=== PATIENT | female | born 1950 | race Caucasian/White ===

== ENCOUNTER → 2016-11-06 | Outpatient (CLI) | payer OTHER ==
[~2016-11-06] MED LIST: ALBU1AER9 INH; ASPI81TA28 PO; CARV6.252 PO; DLN100 PO; DLN30 PO; ERGO1CAP35 PO; IPRASOL4 INH; MULT-506
[2016-11-06 17:28] LABS: MEAN CELL VOLUME 97.7 fL (80-100); MEAN CORPUSCULAR HEMOGLOBIN 31.9 pg (25-34); MEAN CORPUSCULAR HGB CONC 32.6 g/dl (32-36); MEAN PLATELET VOLUME 9.3 fL (7.4-10.4); PLATELET COUNT 228 K/uL (130-400); RED BLOOD COUNT 3.89 M/uL (4.2-5.4); WHITE BLOOD COUNT 7.44 K/uL (4.8-10.8)
[2016-11-06 17:33] LABS: URINE APPEARANCE CLEAR (CLEAR); URINE BILIRUBIN NEG (NEG); URINE COLOR YELLOW; URINE NITRITE NEG (NEG); URINE PH 7.5 (4.5-7.5); URINE SPECIFIC GRAVITY 1.006 (1.000-1.030); UROBILINOGEN NEG (NEG); ZZUR CULT IF INDIC CLEAN CATCH NO
[2016-11-06 17:37] LABS: MANUAL MICROSCOPIC REQUIRED? NO; REVIEW REQ? NO
[2016-11-06 17:46] LABS: CREATININE, URINE < 13.0 mg/dl; URINE TOTAL PROTEIN 5.3 mg/dl (0-11.9)
[2016-11-06 17:54] LABS: ALB/GLOB RATIO 0.8 (0.9-2); ALT/SGPT 20 U/L (12-78); AST/SGOT 15 U/L (15-37); BLOOD UREA NITROGEN 21 mg/dl (7-18); BUN/CREATININE RATIO 24.8 (10-20); CALCIUM 8.6 mg/dl (8.5-10.1); CARBON DIOXIDE 33 mmol/L (21-32); CHLORIDE 106 mmol/L (98-107); CREATININE 0.83 mg/dl (0.60-1.20); GLUCOSE 92 mg/dl (70-99); POTASSIUM 4.1 mmol/L (3.5-5.1); SODIUM 142 mmol/L (136-145)
[2016-11-06 17:55] LABS: ALKALINE PHOSPHATASE 154 U/L (45-117)
== END | disposition home or self-care (01) ==
LOC: C.LAB1850 16:59
PROVIDERS: ATTEND Internal Medicine Nephrology
DX: N25.81 Secondary hyperparathyroidism of renal origin (principal); D86.9 Sarcoidosis, unspecified; N20.0 Calculus of kidney; N18.2 Chronic kidney disease, stage 2 (mild); I12.9 Hypertensive chronic kidney disease with stage 1 through stage 4 chronic kidney disease, or unspecified chronic kidney disease; E55.9 Vitamin D deficiency, unspecified

== ENCOUNTER → 2016-12-11 | Outpatient (CLI) | payer OTHER ==
--- NOTE | 2016-12-14 13:13 | MAMMOGRAPHY REPORT ---
BILATERAL DIGITAL SCREENING MAMMOGRAM TOMOSYNTHESIS WITH CAD: 12/11/2016 TECHNIQUE: Breast tomosynthesis in addition to standard 2D mammography was performed. Current study was also evaluated with a Computer Aided Detection (CAD) system. COMPARISON: Comparison is made to exams dated: 08/08/2015 mammogram, 08/02/2014 mammogram, 07/13/2013 yazmin mogram, 07/04/2012 mammogram, and 07/03/2011 mammogram - [facility]. BREAST COMPOSITION: There are scattered areas of fibroglandular density in both breasts. FINDINGS: No suspicious masses, calcifications, or areas of architectural distortion are noted in ei ther breast. There has been no significant interval change compared to prior exams. IMPRESSION: ACR BI-RADS CATEGORY 1: NEGATIVE There is no mammographic evidence of malignancy. A 1 year screening mammogram is recommended. The pa tient will receive written notification of the results. Approximately 10% of breast cancers are not detected with mammography. A negative mammographic report should not delay biopsy if a clinically suggestive mass is present. Lima Escobar M.D. ah/:12/11/2016 16:31:07 Loss Prevention Supervisor: Radha Fox RT(R)(M), [facility] letter sent: Normal 1/2 BI-RADS Code: ACR BI-RADS Category 1: Negative
== END | disposition home or self-care (01) ==
LOC: C.MAMM 12:27
PROVIDERS: ATTEND Family Medicine
DX: Z12.31 Encounter for screening mammogram for malignant neoplasm of breast (principal)

== ENCOUNTER → 2017-05-18 | Outpatient (CLI) | payer OTHER ==
[2017-05-18 17:46] LABS: HEMATOCRIT 37.9 % (37-47); MEAN CELL VOLUME 99.5 fL (80-100); MEAN CORPUSCULAR HEMOGLOBIN 32.8 pg (25-34); MEAN PLATELET VOLUME 9.6 fL (7.4-10.4); PLATELET COUNT 226 K/uL (130-400); RED BLOOD COUNT 3.81 M/uL (4.2-5.4); WHITE BLOOD COUNT 7.25 K/uL (4.8-10.8)
[2017-05-18 18:03] LABS: URINE APPEARANCE CLEAR (CLEAR); URINE BILIRUBIN NEG (NEG); URINE COLOR YELLOW; URINE EPITHELIAL CELL AUTO >30 /lpf (0-5); URINE NITRITE NEG (NEG); URINE SPECIFIC GRAVITY 1.022 (1.000-1.030); UROBILINOGEN NEG (NEG)
[2017-05-18 18:13] LABS: CREATININE, URINE 79.6 mg/dl; URINE PROTIEN/CREAT RATIO 0.3 (0-0.2); URINE TOTAL PROTEIN 24.5 mg/dl (0-11.9)
[2017-05-18 18:14] LABS: MANUAL MICROSCOPIC REQUIRED? NO; REVIEW REQ? NO
[2017-05-18 18:24] LABS: BLOOD UREA NITROGEN 23 mg/dl (7-18); BUN/CREATININE RATIO 32.2 (10-20); CALCIUM 8.2 mg/dl (8.5-10.1); CARBON DIOXIDE 31 mmol/L (21-32); CHLORIDE 104 mmol/L (98-107); CREATININE 0.73 mg/dl (0.60-1.20); GLUCOSE 87 mg/dl (70-99); POTASSIUM 3.8 mmol/L (3.5-5.1); SODIUM 140 mmol/L (136-145)
[2017-05-18 18:27] LABS: PHOSPHORUS 3.1 mg/dl (2.5-4.9)
== END | disposition home or self-care (01) ==
LOC: C.LAB1850 16:56
PROVIDERS: ATTEND Internal Medicine Nephrology
DX: N25.81 Secondary hyperparathyroidism of renal origin (principal); N18.9 Chronic kidney disease, unspecified; N20.0 Calculus of kidney; D86.9 Sarcoidosis, unspecified; I10 Essential (primary) hypertension; E55.9 Vitamin D deficiency, unspecified; N18.2 Chronic kidney disease, stage 2 (mild)

== ENCOUNTER 2017-07-17 20:38 | Emergency (ER) | payer OTHER ==
[~2017-07-17] VITALS: Ht 162.6 cm; Wt 95.4 kg
[2017-07-17 20:48] VITALS: TEMP 36.9; Ht 162.6 cm; Wt 95.4 kg
--- NOTE | 2017-07-17 21:04 | EMERGENCY ROOM VISIT NOTE ---
History Report prepared by Corky: Kita Marin Under the Supervision of: Dr. Uri Oliver D.O. First contact with patient: 20:53 Chief Complaint: FALL Stated Complaint: FALL, HEAD & KNEE INJURY History of Present Illness The patient is a 67 year old female who presents to the Emergency Room with complaints of a fall that occurred prior to arrival. She reports she slipped on ice in her garage, hitting her head and right knee. She rates her discomfort as a 5/10 in severity. She denies any loss of consciousness. She states she was unable to get up on her own initially, but after a moment was able to crawl to a wheelchair her family keeps in her garage and call for help. She does not take daily blood thinners. 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 A total of 10 systems reviewed and were otherwise negative. Past Medical & Surgical Medical Problems: (1) Fibrocystic breast disease (2) Seizure disorder (3) Sjogren's disease Surgical Problems: (1) H/O eye surgery (2) S/P cholecystectomy (3) S/P tonsillectomy Social History Smoking Status: Former Smoker Alcohol Use: none Drug Use: none Marital Status: single Housing Status: lives with family Occupation Status: retired Current/Historical Medications Scheduled Aspirin (Aspirin Ec), 81 MG PO DAILY Carvedilol (Coreg), 6.25 MG PO BID Ergocalciferol (Drisdol), 50,000 UNITS PO MONTHLY Multivitamin (Multivitamin), 1 TAB PO DAILY Phenytoin Sodium (Dilantin), 100 MG PO BID Phenytoin Sodium (Dilantin), 200 MG PO QPM Phenytoin Sodium Extended (Dilantin), 30 MG PO QPM Scheduled PRN Albuterol Sulfate (Proair Respiclick), 2 PUFFS INH UD PRN for CHEST CONGESTION Ipratropium-Albuterol (Duoneb), 1 TREATMENT INH Q4H PRN for SOB/Wheezing Allergies Coded Allergies: Carbamazepine (Verified Allergy, Unknown, 07/17/17) Cephalexin (Verified Allergy, Unknown, unk, 07/17/17) Pseudoephedrine (Verified Allergy, Unknown, 07/17/17) Simvastatin (Verified Allergy, Unknown, 07/17/17) Physical Exam Vital Signs Date Time Temp Pulse Resp B/P (MAP) Pulse Ox O2 Delivery O2 Flow Rate FiO2 07/17/17 22:16 76 18 193/79 98 Room Air 07/17/17 20:48 36.9 84 18 200/90 92 Room Air Physical Exam GENERAL: Patient is awake, alert, and in no acute distress. Patient is resting comfortably and showing no signs of anxiety EYES: The conjunctivae are clear. The pupils are round and reactive. EARS, NOSE, MOUTH AND THROAT: The nose is without any evidence of any deformity. Mucous membranes are moist tongue is midline NECK: The neck is nontender and supple. RESPIRATORY: Normal respiratory effort is noted there is no evidence of wheezing rhonchi or rales CARDIOVASCULAR: Regular rate and rhythm noted there no murmurs rubs or gallops normal S1 normal S2 GASTROINTESTINAL: The abdomen is soft. Bowel sounds are present in all quadrants. Abdomen is nontender BACK: No midline tenderness or or step-off noted range of motion in flexion extension as well as rotation no signs of muscle spasm noted MUSCULOSKELETAL/EXTREMITIES: Normal ROM noted in both hips, no deformity in the lower extremities. There was ecchymosis, swelling and tenderness over the right patella. Patient was able to hold the leg off the bed. There was no instability noted to anterior or posterior drawer testing. There is no evidence of gross deformity full range of motion is noted in the hips and shoulders SKIN: There is no obvious evidence of any rash. There are no petechiae, pallor or cyanosis noted. NEUROLOGIC: Patient is awake alert and oriented x3 Medical Decision & Procedures ER Provider Diagnostic Interpretation: Radiology results as stated below per my review and radiologist interpretation: HEAD WITHOUT CONTRAST (CT) CT DOSE: 537.48 mGy.cm HISTORY: Trauma. Mental status change. fall TECHNIQUE: Multiaxial CT images of the head were performed without the use of intravenous contrast. A dose lowering technique was utilized adhering to the principles of ALARA. Comparison: None. Findings: The paranasal sinuses and mastoid air cells are clear. The calvarium and skull base are intact. The ventricles and sulci are within normal limits. There is no mass, hematoma, midline shift, or acute infarct. Impression: No acute intracranial abnormality. The above report was generated using voice recognition software. It may contain grammatical, syntax or spelling errors. Electronically signed by: Hair Muniz M.D. 07/17/2017 9:19 PM R KNEE 1 OR 2 VIEWS ROUTINE CLINICAL HISTORY: fall trauma. Pain. COMPARISON: None. DISCUSSION: The bones and joint spaces appear intact. There is no evidence of fracture, dislocation or bony disease. There is no evidence for soft tissue swelling. IMPRESSION: Negative study. The above report was generated using voice recognition software. It may contain grammatical, syntax or spelling errors. Electronically signed by: Hair Muniz M.D. 07/17/2017 9:49 PM Medications Administered Medications (Trade) Dose Ordered Sig/Eric Route Start Time Stop Time Status Last Admin Dose Admin Acetaminophen (Tylenol Tab) 1,000 mg NOW STAT PO 07/17/17 21:59 07/17/17 22:00 DC 07/17/17 22:12 1,000 MG ED Course 2057: The patient was evaluated in room B12. A complete history and physical examination were performed. 2158: Acetaminophen 1000 mg PO. 2214: I reevaluated the patient. She is feeling well and resting comfortably. I discussed her results and discharge instructions and she verbalized complete understanding and agreement. Medical Decision Prior records/ancillary studies reviewed. Triage Nursing notes reviewed. The patient's history was concerning for traumatic injury Differential diagnosis: Etiologies such as fracture, dislocation, intra-abdominal, pneumothorax, intrathoracic , intracranial, neurologic, as well as other traumatic pathologies were entertained. The patient is a 67-year-old female who presented to the emergency department after a fall. She fell striking the back of her head. She also had an injury to her right knee. She had significant swelling and ecchymosis over the right patella. X-rays did not reveal any acute intercranial pathology or fracture to the right knee. I discussed the patient's radiographic studies with her. She was treated with medication for pain. She was encouraged to rest and avoid any strenuous activity. She was also encouraged to call her primary care physician to schedule a follow-up appointment. Otherwise she was encouraged to return to the emergency department immediately if symptoms change worsen or the need arises. Head Trauma GCS Score: 15 Medication Reconcilliation Current Medication List: was personally reviewed by me Blood Pressure Screening Patient's blood pressure: Elevated blood pressure Blood pressure disposition: Referred to PCP Impression Primary Impression: Fall Additional Impressions: Head injury Contusion of right knee Scribe Attestation The scribe's documentation has been prepared under my direction and personally reviewed by me in its entirety. I confirm that the note above accurately reflects all work, treatment, procedures, and medical decision making performed by me. Departure Information Dispostion Home / Self-Care Referrals Tay Rey III, M.D. (PCP) Patient Instructions ED Contusion Lower Ext, ED Head Injury Closed, My [facility] Additional Instructions Call your family to schedule follow-up appointment. Continue using Tylenol and Motrin as directed for pain. Recommend another x-ray of the right knee if symptoms do not improve within 7-10 days. Problem Qualifiers Primary Impression: Fall Encounter type: initial encounter Qualified Codes: W19.XXXA - Unspecified fall, initial encounter Additional Impressions: Head injury Encounter type: initial encounter Qualified Codes: S09.90XA - Unspecified injury of head, initial encounter Contusion of right knee Encounter type: initial encounter Qualified Codes: S80.01XA - Contusion of right knee, initial encounter
--- NOTE | 2017-07-17 21:20 | DIAGNOSTIC IMAGING REPORT ---
HEAD WITHOUT CONTRAST (CT) CT DOSE: 537.48 mGy.cm HISTORY: Trauma. Mental status change. fall TECHNIQUE: Multiaxial CT images of the head were performed without the use of intravenous contrast. A dose lowering technique was utilized adhering to the principles of ALARA. Comparison: None. Findings: The paranasal sinuses and mastoid air cells are clear. The calvarium and skull base are intact. The ventricles and sulci are within normal limits. There is no mass, hematoma, midline shift, or acute infarct. Impression: No acute intracranial abnormality. The above report was generated using voice recognition software. It may contain grammatical, syntax or spelling errors. Electronically signed by: Hair Muniz M.D. 07/17/2017 9:19 PM Dictated Date/Time: 07/17/2017 9:18 PM
[2017-07-17] MEDS ORDERED: PHEN-310 PO (21:37)
[2017-07-17] MEDS ORDERED: IPRASOL4 INH (21:37)
[2017-07-17] MEDS ORDERED: MULT-506 PO (21:37)
[2017-07-17] MEDS ORDERED: PHN/100 PO (21:37)
[2017-07-17] MEDS ORDERED: ERGO50002 PO (21:37)
[2017-07-17] MEDS ORDERED: CARV6.252 PO (21:37)
[2017-07-17] MEDS ORDERED: DLN/100 PO (21:37)
[2017-07-17] MEDS ORDERED: ASPI81TA28 PO (21:37)
[2017-07-17] MEDS ORDERED: ALBU18002 INH (21:37)
--- NOTE | 2017-07-17 21:50 | DIAGNOSTIC IMAGING REPORT ---
R KNEE 1 OR 2 VIEWS ROUTINE CLINICAL HISTORY: fall trauma. Pain. COMPARISON: None. DISCUSSION: The bones and joint spaces appear intact. There is no evidence of fracture, dislocation or bony disease. There is no evidence for soft tissue swelling. IMPRESSION: Negative study. The above report was generated using voice recognition software. It may contain grammatical, syntax or spelling errors. Electronically signed by: Hair Muniz M.D. 07/17/2017 9:49 PM Dictated Date/Time: 07/17/2017 9:49 PM
[2017-07-17] MEDS ORDERED: ACETAMINOPHEN 500 MG TAB PO STA (21:59)
[2017-07-17 22:16] VITALS: BP 193/79; PULSE 76; O2SAT 98
== END 2017-07-17 22:44 | disposition home or self-care (01) ==
LOC: EDBD 20:38 → C.EDB 20:39
DX: S09.90XA Unspecified injury of head, initial encounter (principal); S80.01XA Contusion of right knee, initial encounter; W01.198A Fall on same level from slipping, tripping and stumbling with subsequent striking against other object, initial encounter; Y92.89 Other specified places as the place of occurrence of the external cause

== ENCOUNTER 2019-09-15 17:03 | Inpatient (IN) ==
[2019-09-15] MEDS ORDERED: ALBUT/IPRATROP 3MG/0.5MG NEB 3 ML VIAL NEB ONE (17:26)
[2019-09-15] MEDS ORDERED: DEXAMETHASONE SOD PHOSPHATE 10 MG in SYRINGE 0 ML IV STA (17:26)
[2019-09-15] MEDS ORDERED: SODIUM CHLORIDE 0.9% 500 ML IV ONE ×2 (17:26→19:35)
[2019-09-15 17:52] LABS: Basophils # (auto) 0.02 K/uL (0-0.2); Basophils % (auto) 0.5 %; Eosinophils # (auto) 0.05 K/uL (0-0.5); Eosinophils % (auto) 1.2 %; Hematocrit (blood only) 37.1 % (37-47); Hemoglobin 12.2 g/dL (12.0-16.0); Immature Granulocytes # (auto) 0.01 K/uL (0.00-0.02); Immature Granulocytes % (auto) 0.2 %; Lymphocytes % (auto) 35.5 %; Mean Corpuscular Hemoglobin 32.5 pg (25-34); Mean Corpuscular Hgb Conc 32.9 g/dL (32-36); Mean Corpuscular Volume 98.9 fL (80-100); Mean Platelet Volume 9.5 fL (7.4-10.4); Monocytes # (auto) 0.94 K/uL (0.11-0.59); Monocytes % (auto) 22.3 %; Neutrophils % (auto) 40.3 %; Platelet Count 174 K/uL (130-400); RDW Coefficient of Variation 13.6 % (11.5-14.5); RDW Standard Deviation 48.9 fL (36.4-46.3); Red Blood Count 3.75 M/uL (4.2-5.4); White Blood Count 4.22 K/uL (4.8-10.8)
[2019-09-15 18:04] LABS: INR 1.1 (0.9-1.1); Partial Thromboplastin Time 28.4 Seconds (21.0-31.0); Prothrombin Time 11.4 Seconds (9.0-12.0)
--- NOTE | 2019-09-15 18:04 | Emergency Department Note ---
History of Present Illness General Chief complaint: Flu Like Symptoms Stated complaint: FLU SX, FEVER, COUGH Time Seen by Provider: 09/15/19 17:08 Source: patient Mode of arrival: EMS Limitations: no limitations History of Present Illness Provider complaint: cough, fever Onset (ago): day(s) Location: chest Radiation: non-radiation Severity: mild Pain Consistency: + other Maximum Pain Intensity: 0 Current Pain Intensity: 0 Quality: + other (sob) Relieved By: + none Exacerbated By: + none Associated symptoms: + fever/chills and + shortness of breath; no chest pain Treatments prior to arrival: none The patient is a pleasant 69-year-old woman presents emerged department for evaluation of cough congestion fevers that have been evolving since Wednesday with a failure who was diagnosed with influenza. Home Medications Home Medications Medication Instructions Recorded Confirmed Type chlorthalidone 25 mg tablet 25 mg PO DAILY #30 tab 02/21/19 09/15/19 History lisinopril 5 mg tablet 5 mg PO DAILY tab 02/21/19 09/15/19 History multivitamin 1 tab PO DAILY 02/21/19 09/15/19 History phenytoin sodium extended 100 mg 100 mg PO BID cap 02/21/19 09/15/19 History capsule phenytoin sodium extended 30 mg 30 mg PO DAILY cap 02/21/19 09/15/19 History capsule ergocalciferol (vitamin D2) 1,250 50,000 units PO MONTHLY #12 cap 03/24/19 09/15/19 Rx mcg (50,000 unit) capsule albuterol sulfate 1.25 mg CONTINUOUS NEBULIZATION 09/15/19 09/15/19 History QID PRN albuterol sulfate 2 puff INHALATION QID PRN 09/15/19 09/15/19 History aspirin [Aspir-Low] 81 mg PO DAILY 09/15/19 09/15/19 History carvedilol [Coreg] 6.25 mg PO BID 09/15/19 09/15/19 History famotidine [Pepcid AC] 10 mg PO BID PRN 09/15/19 09/15/19 History omeprazole 20 mg PO QAM 09/15/19 09/15/19 History phenytoin sodium extended 200 mg PO HS 09/15/19 09/15/19 History pravastatin 10 mg PO DAILY 09/15/19 09/15/19 History umeclidinium-vilanterol [Anoro 1 ea INHALATION DAILY PRN 09/15/19 09/15/19 History Ellipta] Allergies Allergy/AdvReac Type Severity Reaction Status Date / Time carbamazepine Allergy Unknown Unknown Verified 09/15/19 19:17 cephalexin Allergy Unknown unk Verified 09/15/19 19:17 pseudoephedrine Allergy Unknown Unknown Verified 09/15/19 19:17 simvastatin Allergy Unknown Unknown Verified 09/15/19 19:17 Past Med/Surg History Medical History Anemia (Chronic) Chronic kidney disease, stage II (mild) (Chronic) History of nephrolithiasis (Chronic) Hypertension (Chronic) Sarcoidosis (Chronic) Secondary hyperparathyroidism (Chronic) Vitamin D deficiency (Chronic) Social History Preferred Language: Italian Communication Ability: Effective Locomotive Firer Required: No Beliefs That Will Affect Care: None Current Living Situation: Parent Other Information That Helps Us Care for You: No Feels Safe at Home: Yes Safety Concerns: Feels Safe At This Time Smoking Status: Never smoker Do You Dip or Chew Tobacco: No ; Second Hand Exposure: Yes ; Hx Alcohol Use: No Hx Substance Use: No Review of Systems See HPI for pertinent positives and negatives. A total of ten systems were reviewed and were otherwise negative. Physical Exam Vital Signs Vital Signs - 24 hr 09/15/19 17:11 09/15/19 17:42 09/15/19 17:59 Temperature 36.9 C Temperature Source Oral Pulse Rate 85 Pulse Rate [Finger] 76 Respiratory Rate 18 20 Respiratory Effort / Characteristics Non-Labored Spontaneous Respiratory Depth Normal Blood Pressure [Right Arm] Blood Pressure Mean [Right Arm] Blood Pressure Position [Right Arm] Pulse Oximetry 95 99 95 Pulse Oximetry [Resting] Oxygen Delivery Method Nasal Cannula Nasal Cannula Nasal Cannula Oxygen Flow Rate 2 3 2 Sepsis Recent Fever Within 48 Hours Yes Sepsis New/Unexplained Change in Mental Status No Sepsis Action Taken by Nursing No Action Required Oxygen Flow Rate - Titration Pulse Oximetry Post Tiitration 09/15/19 18:33 09/15/19 19:08 09/15/19 19:51 Temperature Temperature Source Pulse Rate Pulse Rate [Finger] 84 87 Respiratory Rate 22 16 Respiratory Effort / Characteristics Non-Labored Spontaneous Respiratory Depth Blood Pressure [Right Arm] 123/75 Blood Pressure Mean [Right Arm] 91 Blood Pressure Position [Right Arm] Lying Pulse Oximetry 100 87 L 96 Pulse Oximetry [Resting] Oxygen Delivery Method Aerosol Mask Room Air Nasal Cannula Nasal Cannula Oxygen Flow Rate 0 2 Sepsis Recent Fever Within 48 Hours Sepsis New/Unexplained Change in Mental Status Sepsis Action Taken by Nursing Oxygen Flow Rate - Titration 2 Pulse Oximetry Post Tiitration 92 09/15/19 20:40 09/15/19 21:03 09/15/19 21:28 Temperature Temperature Source Pulse Rate Pulse Rate [Finger] 81 71 Respiratory Rate 20 16 Respiratory Effort / Characteristics Non-Labored Spontaneous Respiratory Depth Blood Pressure [Right Arm] 134/76 Blood Pressure Mean [Right Arm] 95 Blood Pressure Position [Right Arm] Pulse Oximetry 94 97 Pulse Oximetry [Resting] 86 L Oxygen Delivery Method Room Air Nasal Cannula Oxygen Flow Rate 2 Sepsis Recent Fever Within 48 Hours Sepsis New/Unexplained Change in Mental Status Sepsis Action Taken by Nursing Oxygen Flow Rate - Titration Pulse Oximetry Post Tiitration 09/15/19 22:26 Temperature Temperature Source Pulse Rate Pulse Rate [Finger] 79 Respiratory Rate 22 Respiratory Effort / Characteristics Respiratory Depth Blood Pressure [Right Arm] 142/67 H Blood Pressure Mean [Right Arm] 92 Blood Pressure Position [Right Arm] Pulse Oximetry 96 Pulse Oximetry [Resting] Oxygen Delivery Method Nasal Cannula Oxygen Flow Rate 2 Sepsis Recent Fever Within 48 Hours Sepsis New/Unexplained Change in Mental Status Sepsis Action Taken by Nursing Oxygen Flow Rate - Titration Pulse Oximetry Post Tiitration GENERAL: Awake, alert, well-appearing, in no distress HENT: Normocephalic, atraumatic. Oropharynx with dry mucous membranes and otherwise unremarkable. EYES: Normal conjunctiva. Sclera non-icteric. NECK: Supple. No nuchal rigidity. FROM. No JVD. RESPIRATORY: Scant intermittent wheeze. CARDIAC: Regular rate, normal rhythm. Extremities warm and well perfused. Pulses equal. ABDOMEN: Soft, non-distended. No tenderness to palpation. No rebound or guarding. No masses. RECTAL: Deferred. MUSCULOSKELETAL: Chest examination reveals no tenderness. The back is symmetrical on inspection without obvious abnormality. There is no CVA tenderness to palpation. No joint edema. LOWER EXTREMITIES: Calves are equal size bilaterally and non-tender. No edema. No discoloration. NEURO: Normal sensorium. No sensory or motor deficits noted. SKIN: No rash or jaundice noted. Course Administered Medications Phenytoin Sodium (Dilantin Er) 200 mg PO HS JYOTI Stop: 10/15/19 22:44 Last Admin: 09/16/19 00:05 Dose: 200 mg Documented by: [id number] Discontinued Medications Albuterol (Duoneb) 12 ml NEB ONE ONE Stop: 09/15/19 17:27 Last Admin: 09/15/19 17:41 Dose: 12 ml Documented by: [id number] Albuterol (Duoneb) 3 ml NEB NOW STA Stop: 09/15/19 19:36 Last Admin: 09/15/19 19:51 Dose: 3 ml Documented by: [id number] Albuterol (Duoneb) 3 ml NEB NOW STA Stop: 09/15/19 21:05 Last Admin: 09/15/19 21:28 Dose: 3 ml Documented by: [id number] Guaifenesin (Mucinex) 600 mg PO NOW STA Stop: 09/15/19 21:05 Last Admin: 09/15/19 23:03 Dose: 600 mg Documented by: [id number] Sodium Chloride (Nss) 500 mls @ 999 mls/hr IV .Q31M ONE Stop: 09/15/19 17:56 Last Infusion: 09/15/19 18:43 Dose: 0 mls/hr Documented by: [id number] Admin: 09/15/19 17:59 Dose: 999 mls/hr Documented by: [id number] Dexamethasone Sodium Phosphate (10 mg/ Syringe) 2.5 mls @ 1 mls/min IV NOW STA Stop: 09/15/19 17:28 Last Admin: 09/15/19 18:33 Dose: 1 mls/min Documented by: [id number] Sodium Chloride (Nss) 500 mls @ 999 mls/hr IV .Q31M ONE Stop: 09/15/19 20:05 Last Infusion: 09/15/19 21:15 Dose: 0 mls/hr Documented by: [id number] Admin: 09/15/19 19:51 Dose: 999 mls/hr Documented by: [id number] Azithromycin 500 mg/ Dextrose 255 mls @ 127.5 mls/hr IV NOW STA Stop: 09/16/19 00:42 Last Infusion: 09/16/19 02:26 Dose: 0 mls/hr Documented by: [id number] Admin: 09/16/19 00:04 Dose: 127.5 mls/hr Documented by: [id number] Oseltamivir Phosphate (Tamiflu) 75 mg PO NOW STA; Protocol Stop: 09/15/19 19:01 Last Admin: 09/15/19 19:06 Dose: 75 mg Documented by: [id number] Potassium Chloride (Klor-Con M20) 40 meq PO NOW STA Stop: 09/15/19 19:01 Last Admin: 09/15/19 19:06 Dose: 40 meq Documented by: [id number] Medical Decision Making Differential Diagnosis Reactive airway disease, pneumonia, pneumothorax, COPD, CHF, infections, cardiac ischemia, pulmonary embolism, musculoskeletal, gastrointestinal, as well as other pathologies. Medical Records Attestation: I reviewed the patient's medical records. Home Medications Current Medication List: was personally reviewed by me Laboratory Data Attestation: I reviewed the patient's lab results. Result diagrams: 09/15/19 17:40 09/15/19 17:40 Lab Results 09/15/19 09/15/19 09/15/19 Range/Units 17:40 17:40 17:40 WBC 4.22 L (4.8-10.8) K/uL RBC 3.75 L (4.2-5.4) M/uL Hgb 12.2 (12.0-16.0) g/dL Hct 37.1 (37-47) % MCV 98.9 (80-100) fL MCH 32.5 (25-34) pg MCHC 32.9 (32-36) g/dL RDW Std Deviation 48.9 H (36.4-46.3) fL RDW Coeff of Ezequiel 13.6 (11.5-14.5) % Plt Count 174 (130-400) K/uL MPV 9.5 (7.4-10.4) fL Immature Gran % (Auto) 0.2 % Neut % (Auto) 40.3 % Lymph % (Auto) 35.5 % [place] % (Auto) 22.3 % Eos % (Auto) 1.2 % Baso % (Auto) 0.5 % Immature Gran # (Auto) 0.01 (0.00-0.02) K/uL Neut # (Auto) 1.70 (1.4-6.5) K/uL Lymph # (Auto) 1.50 (1.2-3.4) K/uL [place] # (Auto) 0.94 H (0.11-0.59) K/uL Eos # (Auto) 0.05 (0-0.5) K/uL Baso # (Auto) 0.02 (0-0.2) K/uL PT 11.4 (9.0-12.0) Seconds INR 1.1 (0.9-1.1) APTT 28.4 (21.0-31.0) Seconds PTT Ratio 1.0 Sodium 137 (136-145) mmol/L Potassium 3.4 L (3.5-5.1) mmol/L Chloride 103 (98-107) mmol/L Carbon Dioxide 28 (21-32) mmol/L Anion Gap 6.0 (3-11) BUN 25 H (7-18) mg/dl Creatinine 1.13 (0.6-1.2) mg/dl Est Cr Clr Drug Dosing 55.4 ml/min Est GFR ( Amer) 57.8 Est GFR (Non-Af Amer) 49.9 BUN/Creatinine Ratio 21.8 H (10-20) Glucose 97 (70-99) mg/dl Calcium 8.2 L (8.5-10.1) mg/dl Phosphorus 3.1 (2.5-4.9) mg/dl Magnesium 2.3 (1.8-2.4) mg/dl Total Bilirubin 0.3 (0.2-1) mg/dl AST 35 (15-37) U/L ALT 26 (12-78) U/L Alkaline Phosphatase 136 H (45-117) U/L Troponin I < 0.015 (0-0.045) ng/ml NT-Pro-B Natriuret Pep 94 (0-900) pg/ml Total Protein 7.8 (6.4-8.2) gm/dl Albumin 3.2 L (3.4-5.0) gm/dl Globulin 4.6 H (2.5-4.0) gm/dl Albumin/Globulin Ratio 0.7 L (0.9-2) Lipase 226 (73-393) U/L Influenza Type A (PCR) (Neg) Influenza Type B (PCR) (Neg) 09/15/19 Range/Units 18:00 WBC (4.8-10.8) K/uL RBC (4.2-5.4) M/uL Hgb (12.0-16.0) g/dL Hct (37-47) % MCV (80-100) fL MCH (25-34) pg MCHC (32-36) g/dL RDW Std Deviation (36.4-46.3) fL RDW Coeff of Ezequiel (11.5-14.5) % Plt Count (130-400) K/uL MPV (7.4-10.4) fL Immature Gran % (Auto) % Neut % (Auto) % Lymph % (Auto) % [place] % (Auto) % Eos % (Auto) % Baso % (Auto) % Immature Gran # (Auto) (0.00-0.02) K/uL Neut # (Auto) (1.4-6.5) K/uL Lymph # (Auto) (1.2-3.4) K/uL [place] # (Auto) (0.11-0.59) K/uL Eos # (Auto) (0-0.5) K/uL Baso # (Auto) (0-0.2) K/uL PT (9.0-12.0) Seconds INR (0.9-1.1) APTT (21.0-31.0) Seconds PTT Ratio Sodium (136-145) mmol/L Potassium (3.5-5.1) mmol/L Chloride (98-107) mmol/L Carbon Dioxide (21-32) mmol/L Anion Gap (3-11) BUN (7-18) mg/dl Creatinine (0.6-1.2) mg/dl Est Cr Clr Drug Dosing ml/min Est GFR ( Amer) Est GFR (Non-Af Amer) BUN/Creatinine Ratio (10-20) Glucose (70-99) mg/dl Calcium (8.5-10.1) mg/dl Phosphorus (2.5-4.9) mg/dl Magnesium (1.8-2.4) mg/dl Total Bilirubin (0.2-1) mg/dl AST (15-37) U/L ALT (12-78) U/L Alkaline Phosphatase (45-117) U/L Troponin I (0-0.045) ng/ml NT-Pro-B Natriuret Pep (0-900) pg/ml Total Protein (6.4-8.2) gm/dl Albumin (3.4-5.0) gm/dl Globulin (2.5-4.0) gm/dl Albumin/Globulin Ratio (0.9-2) Lipase (73-393) U/L Influenza Type A (PCR) Pos for Influ A A* (Neg) Influenza Type B (PCR) Neg for Influ B (Neg) Imaging Data Attestation: I personally reviewed and interpreted this imaging study as follows: Radiologist's Impression: [place], [place] [phone] XRay Report Patient: RONI BAGLEY Date: 09/15/19 MR#: [id number]: Chacha REY Acct ID:[id number]: Date: 1950ity Zip: [place] [address] Age: 69Location: ED Sex: F Room/Bed: Att Phy:Diagnosis: FLU SX, FEVER, COUGH Beckie Phy: Tay Rey III, MDService Date: 09/15/19 Fam Phy:Interpreting Phy: Meño Lazcano MD Admit Phy: Ordering Phy: David Lakhani M.D. cc: ~ XR chest 1V portable CLINICAL HISTORY: Atypical chest pain COMPARISON STUDY: No previous studies for comparison. FINDINGS: The heart is the upper limits of normal in size. There is no lobar consolidation. There is mild age-indeterminate interstitial thickening. Left basilar opacities are likely atelectatic. There are no significant pleural effusions[ IMPRESSION: Mild interstitial thickening, finding of uncertain chronicity. No evidence of lobar consolidation. ACT 112: Negative or not required by law. ECG Data Attestation: I personally reviewed and interpreted this ECG as follows: Indication: + SOB/dyspnea Rate (beats per minute): 77 Rhythm: + normal sinus ECG Intervals/blocks: + Normal QRS and + Normal QT ECG ST segments: + Nonspecific ST abnormalities; no ST elevation Blood Pressure Blood Pressure Findings: Elevated blood pressure Blood Pressure Disposition: further management by hospitalist MDM Narrative The patient is a pleasant 69-year-old woman with a pmhx of sarcoidosis who presents emerged department for evaluation of cough congestion fevers that have been evolving since Rachel with a failure who was diagnosed with influenza. On arrival patient is uncomfortable no acute distress, afebrile stable vital signs. She does exhibit hypoxia in the mid 80s on room air. She is not on oxygen normally. EKG without overt acute ischemia. Chest x-ray negative for focal infiltrates. WBC 4.2, nonspecific. H/H in place within normal limits. Chemistry without acidosis. Electrolytes no FTs unremarkable. Troponin negative/undetectable. BNP wnl. Patient was Influenza A positive. She was treated with Tamiflu. She was additionally treated with IV fluid hydration, steroids and continuous DuoNeb including repeat administration with improvement in her overall symptoms however upon amatory trial would still be hypoxic in the mid to upper 80s on room air. Thus, given persistent hypoxia in the setting of influenza reasonable admit for further management. Case was discussed with Dr. Preston, [facility] hospitalist, who evaluate the patient for admission. Impression & Plan Hypoxia, Influenza A, Hypertension Discharge Plan Visit Data *Final* Discharge Date/Time: 09/16/19 01:35 Chief Complaint: Flu Like Symptoms Stated Complaint: FLU SX, FEVER, COUGH ED Provider: David Lakhain Discharge Problem: Hypoxia, Influenza A, Hypertension Patient Disposition: Admitted As Inpatient Discharge Instructions Interventions: ED Discharge Assessment Last Done: 09/16/19 01:35
[2019-09-15 18:18] LABS: Alanine Aminotransferase 26 U/L (12-78); Albumin Level 3.2 gm/dl (3.4-5.0); Aspartate Aminotransferase 35 U/L (15-37); BUN Creatinine Ratio 21.8 (10-20); Blood Urea Nitrogen 25 mg/dl (7-18); Calcium 8.2 mg/dl (8.5-10.1); Carbon Dioxide 28 mmol/L (21-32); Chloride 103 mmol/L (98-107); Creatinine Clr Calc Pharmacy 55.4 ml/min; Est GFR (African American) 57.8; Est GFR (Non-African American) 49.9; Glucose 97 mg/dl (70-99); Lipase 226 U/L (73-393); Magnesium 2.3 mg/dl (1.8-2.4); Potassium 3.4 mmol/L (3.5-5.1); Sodium 137 mmol/L (136-145)
[2019-09-15 18:23] LABS: Albumin Globulin Ratio 0.7 (0.9-2); Alkaline Phosphatase 136 U/L (45-117); Bilirubin,Total 0.3 mg/dl (0.2-1); Globulin 4.6 gm/dl (2.5-4.0); Phosphorus 3.1 mg/dl (2.5-4.9); Total Protein 7.8 gm/dl (6.4-8.2); Troponin I < 0.015 ng/ml (0-0.045)
[2019-09-15 18:45] LABS: Influenza B virus by PCR Neg for Influ B (Neg)
[2019-09-15] MEDS ORDERED: OSELTAMIVIR PHOSPHATE 75 MG CAP PO STA (19:00)
[2019-09-15] MEDS ORDERED: POTASSIUM CHLORIDE 20 MEQ TABCR PO STA (19:00)
--- NOTE | 2019-09-15 19:02 | XRay Report ---
XR chest 1V portable CLINICAL HISTORY: Atypical chest pain COMPARISON STUDY: No previous studies for comparison. FINDINGS: The heart is the upper limits of normal in size. There is no lobar consolidation. There is mild age-indeterminate interstitial thickening. Left basilar opacities are likely atelectatic. There are no significant pleural effusions[ IMPRESSION: Mild interstitial thickening, finding of uncertain chronicity. No evidence of lobar conso lidation. ACT 112: Negative or not required by law. Electronically signed by: Meño Lazcano M.D. 09/15/2019 7:01 PM
[2019-09-15] MEDS ORDERED: ALBUT/IPRATROP 3MG/0.5MG NEB 3 ML VIAL NEB STA ×2 (19:35→21:04)
[2019-09-15 20:46] LABS: NT Pro B Type Natriuretic Pept 94 pg/ml (0-900)
[2019-09-15] MEDS ORDERED: guaiFENesin 600 MG TABCR PO STA (21:04)
--- NOTE | 2019-09-15 22:37 | History & Physical Report ---
Date of Service September 15, 2019 Assessment & Plan (1) Acute hypoxemic respiratory failure: Possible COPD/restrictive lung disease exacerbation secondary to influenza hx sarcoidosis as per records hypertension, stable Hypokalemia secondary diuretic Rx history of seizure disorder, well controlled on Dilantin regimen Medical telemetry Supplemental O2 Azithromycin, nebs, prednisone course Tamiflu course Pulmonary consult if without improvement Replace potassium, hold home diuretic for now DVT prophylaxis Lovenox subcu Full code Text document was generated using [employer] voice recognition software. It may contain grammatical or spelling errors. Kindly contact undersigned for clarification of any documentation item in question. History of Present Illness Chief Complaint: Low O2 Primary Care Provider: Tay Rey MD History obtained from patient and records. Medical history significant for COPD/restrictive lung disease as per records, sarcoidosis, hypertension, hyperlipidemia, hyperparathyroidism as per records, history of seizure disorder. 2 days history of poor appetite, malaise, low-grade fever at home along with cough clear to junky with some shortness of breath. No chest pain. Patient's mother had flu last week. Patient seen at PCP's office this afternoon. Noted to be hypoxemic, O2 sats 80s on room air. Patient brought to the ER. Received Decadron, neb treatment, Tamiflu for possible COPD exacerbation secondary to flu. 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 Allergies Allergy/AdvReac Type Severity Reaction Status Date / Time carbamazepine Allergy Unknown Unknown Verified 09/15/19 19:17 cephalexin Allergy Unknown unk Verified 09/15/19 19:17 pseudoephedrine Allergy Unknown Unknown Verified 09/15/19 19:17 simvastatin Allergy Unknown Unknown Verified 09/15/19 19:17 Home Medications Home Medications Medication Instructions Recorded Confirmed Type chlorthalidone 25 mg tablet 25 mg PO DAILY #30 tab 02/21/19 09/15/19 History lisinopril 5 mg tablet 5 mg PO DAILY tab 02/21/19 09/15/19 History multivitamin 1 tab PO DAILY 02/21/19 09/15/19 History phenytoin sodium extended 100 mg 100 mg PO BID cap 02/21/19 09/15/19 History capsule phenytoin sodium extended 30 mg 30 mg PO DAILY cap 02/21/19 09/15/19 History capsule ergocalciferol (vitamin D2) 1,250 50,000 units PO MONTHLY #12 cap 03/24/19 09/15/19 Rx mcg (50,000 unit) capsule albuterol sulfate 1.25 mg CONTINUOUS NEBULIZATION 09/15/19 09/15/19 History QID PRN albuterol sulfate 2 puff INHALATION QID PRN 09/15/19 09/15/19 History aspirin [Aspir-Low] 81 mg PO DAILY 09/15/19 09/15/19 History carvedilol [Coreg] 6.25 mg PO BID 09/15/19 09/15/19 History famotidine [Pepcid AC] 10 mg PO BID PRN 09/15/19 09/15/19 History omeprazole 20 mg PO QAM 09/15/19 09/15/19 History phenytoin sodium extended 200 mg PO HS 09/15/19 09/15/19 History pravastatin 10 mg PO DAILY 09/15/19 09/15/19 History umeclidinium-vilanterol [Anoro 1 ea INHALATION DAILY PRN 09/15/19 09/15/19 History Ellipta] Past Med/Surg History Medical History Anemia (Chronic) Chronic kidney disease, stage II (mild) (Chronic) History of nephrolithiasis (Chronic) Hypertension (Chronic) Sarcoidosis (Chronic) Secondary hyperparathyroidism (Chronic) Vitamin D deficiency (Chronic) Social History Preferred Language: Azeri Communication Ability: Effective Pneumatic Tube Repairer Required: No Beliefs That Will Affect Care: None Current Living Situation: Parent Other Information That Helps Us Care for You: No Feels Safe at Home: Yes Safety Concerns: Feels Safe At This Time Smoking Status: Never smoker Do You Dip or Chew Tobacco: No ; Second Hand Exposure: Yes ; Hx Alcohol Use: No Hx Substance Use: No Review of Systems Review of Systems: As per HPI, all 10 systems reviewed, all other ROS negative Physical Exam Physical Exam: GENERAL: Comfortable, pleasant, wane, obese, no respiratory distress SKIN: Normal color, warm HEENT: [place] palpebral conjunctivae, no ptosis, dry buccal mucosa, nasal cannula in place NECK : Supple, short neck, no tenderness CHEST : Decreased breath sounds , no tenderness HEART : RRR, no obvious murmurs ABDOMEN: Some distention, nontender EXTREMITIES : Minimal LE swelling, no LE tenderness, no other conspicuous deformities noted NEUROLOGIC : Coherent, no facial asymmetry, no other gross focality Results & Data Vital Signs (Past 12 Hours) Vital Signs Temp Pulse Pulse Resp BP Pulse Ox Pulse Ox 09/15/19 22:26 79 22 142/67 H 96 09/15/19 21:28 71 16 97 09/15/19 21:03 86 L 09/15/19 20:40 81 20 134/76 94 09/15/19 19:51 87 16 96 09/15/19 19:08 87 L 09/15/19 18:33 84 22 123/75 100 09/15/19 17:59 95 09/15/19 17:42 76 20 99 09/15/19 17:11 36.9 C 85 18 95 Laboratory Results Laboratory Results WBC 4.22 K/uL (4.8-10.8) L 09/15/19 17:40 RBC 3.75 M/uL (4.2-5.4) L 09/15/19 17:40 Hgb 12.2 g/dL (12.0-16.0) 09/15/19 17:40 Hct 37.1 % (37-47) 09/15/19 17:40 MCV 98.9 fL (80-100) 09/15/19 17:40 MCH 32.5 pg (25-34) 09/15/19 17:40 MCHC 32.9 g/dL (32-36) 09/15/19 17:40 RDW Std Deviation 48.9 fL (36.4-46.3) H 09/15/19 17:40 RDW Coeff of Ezequiel 13.6 % (11.5-14.5) 09/15/19 17:40 Plt Count 174 K/uL (130-400) 09/15/19 17:40 MPV 9.5 fL (7.4-10.4) 09/15/19 17:40 Immature Gran % (Auto) 0.2 % 09/15/19 17:40 Neut % (Auto) 40.3 % 09/15/19 17:40 Lymph % (Auto) 35.5 % 09/15/19 17:40 [place] % (Auto) 22.3 % 09/15/19 17:40 Eos % (Auto) 1.2 % 09/15/19 17:40 Baso % (Auto) 0.5 % 09/15/19 17:40 Immature Gran # (Auto) 0.01 K/uL (0.00-0.02) 09/15/19 17:40 Neut # (Auto) 1.70 K/uL (1.4-6.5) 09/15/19 17:40 Lymph # (Auto) 1.50 K/uL (1.2-3.4) 09/15/19 17:40 [place] # (Auto) 0.94 K/uL (0.11-0.59) H 09/15/19 17:40 Eos # (Auto) 0.05 K/uL (0-0.5) 09/15/19 17:40 Baso # (Auto) 0.02 K/uL (0-0.2) 09/15/19 17:40 PT 11.4 Seconds (9.0-12.0) 09/15/19 17:40 INR 1.1 (0.9-1.1) 09/15/19 17:40 APTT 28.4 Seconds (21.0-31.0) 09/15/19 17:40 PTT Ratio 1.0 09/15/19 17:40 Sodium 137 mmol/L (136-145) 09/15/19 17:40 Potassium 3.4 mmol/L (3.5-5.1) L 09/15/19 17:40 Chloride 103 mmol/L (98-107) 09/15/19 17:40 Carbon Dioxide 28 mmol/L (21-32) 09/15/19 17:40 Anion Gap 6.0 (3-11) 09/15/19 17:40 BUN 25 mg/dl (7-18) H 09/15/19 17:40 Creatinine 1.13 mg/dl (0.6-1.2) 09/15/19 17:40 Est Cr Clr Drug Dosing 55.4 ml/min 09/15/19 17:40 Est GFR ( Amer) 57.8 09/15/19 17:40 Est GFR (Non-Af Amer) 49.9 09/15/19 17:40 BUN/Creatinine Ratio 21.8 (10-20) H 09/15/19 17:40 Glucose 97 mg/dl (70-99) 09/15/19 17:40 Calcium 8.2 mg/dl (8.5-10.1) L 09/15/19 17:40 Phosphorus 3.1 mg/dl (2.5-4.9) 09/15/19 17:40 Magnesium 2.3 mg/dl (1.8-2.4) 09/15/19 17:40 Total Bilirubin 0.3 mg/dl (0.2-1) 09/15/19 17:40 AST 35 U/L (15-37) 09/15/19 17:40 ALT 26 U/L (12-78) 09/15/19 17:40 Alkaline Phosphatase 136 U/L (45-117) H 09/15/19 17:40 Troponin I < 0.015 ng/ml (0-0.045) 09/15/19 17:40 NT-Pro-B Natriuret Pep 94 pg/ml (0-900) 09/15/19 17:40 Total Protein 7.8 gm/dl (6.4-8.2) 09/15/19 17:40 Albumin 3.2 gm/dl (3.4-5.0) L 09/15/19 17:40 Globulin 4.6 gm/dl (2.5-4.0) H 09/15/19 17:40 Albumin/Globulin Ratio 0.7 (0.9-2) L 09/15/19 17:40 Lipase 226 U/L (73-393) 09/15/19 17:40 Influenza Type A (PCR) Pos for Influ A (Neg) A* 09/15/19 18:00 Influenza Type B (PCR) Neg for Influ B (Neg) 09/15/19 18:00 Diagnostic Findings Chest x-ray : Mild interstitial thickening, finding of uncertain chronicity. No evidence of lobar consolidation. EKG as per my interpretation : Rate 80, NSR, normal axis, septal infarct, diffuse T wave flattening
[2019-09-15] MEDS ORDERED: AZITHROMYCIN 500 MG in DEXTROSE 5% 250 ML IV STA (22:43)
[2019-09-15] MEDS ORDERED: PHENYTOIN SODIUM ER 100 MG CAP PO STA (22:44)
[2019-09-16] MEDS: PHENYTOIN SODIUM ER 100 MG CAP PO SCH ×4 (00:05→20:49)
[2019-09-16] MEDS ORDERED: FAMOTIDINE 10 MG TABLET PO PRN (02:35)
[2019-09-16] MEDS ORDERED: OXYCODONE HCL IR 5 MG TAB (IMMEDIATE RELEASE) PO PRN (02:35)
[2019-09-16] MEDS ORDERED: XOPENEX/ATROVENT 1.25mg/0.5MG NEB COMBO NEB SCH (02:35)
[2019-09-16] MEDS ORDERED: DEXTROSE 50% 50 ML SYRINGE IV PRN (02:57)
[2019-09-16] MEDS ORDERED: GLUCOSE 10 TABS/TUBE PO PRN (02:57)
[2019-09-16] MEDS ORDERED: CARBOHYDRATES FOR HYPOGLYCEMIA PO PRN (02:57)
[2019-09-16] MEDS ORDERED: GLUCAGON FOR INJ 1 MG VIAL SQ PRN (02:57)
[2019-09-16] MEDS ORDERED: GLUCOSE 40% GEL 15 GM TUBE PO PRN (02:57)
[2019-09-16] MEDS ORDERED: POTASSIUM CHLORIDE 40 MEQ in SODIUM CHLORIDE 0.9% 1000ML 1,000 ML IV ONE (03:00)
[2019-09-16 04:10] LABS: Basophils # (auto) 0.01 K/uL (0-0.2); Basophils % (auto) 0.4 %; Hematocrit (blood only) 34.1 % (37-47); Hemoglobin 11.2 g/dL (12.0-16.0); Immature Granulocytes # (auto) 0.01 K/uL (0.00-0.02); Immature Granulocytes % (auto) 0.4 %; Lymphocytes # (auto) 1.11 K/uL (1.2-3.4); Lymphocytes % (auto) 40.5 %; Mean Corpuscular Hemoglobin 32.7 pg (25-34); Mean Corpuscular Hgb Conc 32.8 g/dL (32-36); Mean Corpuscular Volume 99.4 fL (80-100); Mean Platelet Volume 9.2 fL (7.4-10.4); Monocytes # (auto) 0.57 K/uL (0.11-0.59); Monocytes % (auto) 20.8 %; Neutrophils # (auto) 1.04 K/uL (1.4-6.5); Neutrophils % (auto) 37.9 %; Platelet Count 151 K/uL (130-400); RDW Coefficient of Variation 13.6 % (11.5-14.5); RDW Standard Deviation 49.3 fL (36.4-46.3); Red Blood Count 3.43 M/uL (4.2-5.4); White Blood Count 2.74 K/uL (4.8-10.8)
[2019-09-16] MEDS: carvediloL 6.25 MG TAB PO SCH ×3 (04:10→20:48)
[2019-09-16 04:26] LABS: BUN Creatinine Ratio 24.7 (10-20); Calcium 7.7 mg/dl (8.5-10.1); Creatinine Clr Calc Pharmacy 66.9 ml/min; Est GFR (African American) 77.2; Est GFR (Non-African American) 66.6; Potassium 3.8 mmol/L (3.5-5.1)
[2019-09-16] MEDS: INSULIN ASPART 100 UNITS/ML 3 ML PEN SC SCH ×5 (04:26→20:33)
[2019-09-16 04:49] LABS: Albumin Level 2.8 gm/dl (3.4-5.0)
[2019-09-16] MEDS: PRAVASTATIN SOD 10 MG TAB PO SCH (08:51)
[2019-09-16] MEDS: predniSONE 20 MG TAB PO SCH (08:51)
[2019-09-16] MEDS: ASPIRIN 81 MG ECTAB PO SCH (08:51)
[2019-09-16] MEDS: MULTIVITAMIN TAB PO SCH (08:51)
[2019-09-16] MEDS: PHENYTOIN SODIUM ER 30 MG CAP PO SCH (08:52)
[2019-09-16] MEDS: PANTOprazole 40 MG TAB PO SCH (08:52)
[2019-09-16] MEDS: AZITHROMYCIN 250 MG TAB PO SCH (08:52)
[2019-09-16] MEDS: ENOXAPARIN INJ 40 MG/0.4 ML SYR SQ SCH (08:53)
[2019-09-16] MEDS: lisinopriL 5 MG TAB PO SCH (08:53)
[2019-09-16] MEDS: guaiFENesin 600 MG TABCR PO SCH ×2 (08:57→20:48)
[2019-09-16] MEDS: OSELTAMIVIR PHOSPHATE SUSP 30 MG/5 ML UDP PO SCH ×2 (09:19→20:47)
--- NOTE | 2019-09-16 11:48 | Electrocardiogram Report ---
Test Reason : Blood Pressure : / mmHG Vent. Rate : 077 BPM Atrial Rate : 076 BPM P-R Int : 000 ms QRS Dur : 076 ms QT Int : 412 ms P-R-T Axes : 000 001 -19 degrees QTc Int : 466 ms Poor data quality, interpretation may be adversely affected Sinus rhythm Diffuse Minor Nonspecific T wave abnormality Abnormal ECG When compared with ECG of 03-MAR-1995 08:40, Nonspecific T wave abnormality now present Otherwise no significant change Confirmed by Juan Cheema ([id number] on 09/16/2019 11:48:09 AM Referred By: REFERRED SELF Confirmed By:Juan Cheema
[2019-09-16] MEDS: IPRATROPIUM BROMIDE NEB SOLN 0.02% 2.5 ML VIAL INH SCH ×3 (12:31→19:07)
[2019-09-16] MEDS: LEVALBUTEROL 1.25MG/0.5ML NEB INH SCH ×3 (12:31→19:08)
--- NOTE | 2019-09-16 14:19 | Hospitalist Progress Note ---
Date of Service September 16, 2019 Assessment & Plan (1) Influenza A: Tamiflu, improved overall. (2) COPD exacerbation: Possible exacerbation so steroids were started as well as nebulized bronchodilators and quaifensin. She is not wheezing and has good air movement on auscultation today, however, will cont with this treatment course for now in light of hypoxia and severity of illness. (3) Hypoxia: No evidence of pneumonia, but does have flu A. Recent known sick contact was her mother. Hypoxia still persists but respiratory symptoms are better now. Cont current treatment. (4) Hypertension: controlled, cont lisinopril and coreg per home regimen. (5) Sarcoidosis: known history, workup/treatment per outpatient physician team. (6) Epilepsy: no seizures this admission, cont Dilantin ER (7) DMII (diabetes mellitus, type 2): At goal, cont Novolog with CF and carb coverage while hospitalized. (8) DVT prophylaxis: Lovenox Full Code Dispo-to home when medically stable. Droplet precautions. Sandra Lomas DO [facility] Hospitalist Admission and Anticipated Discharge Date Admission Date: September 15, 2019 Anticipated date of discharge: 09/19/19 Subjective Doing well today, feels significantly better than yesterday. Respiratory sympt oms improved. Eating and tolerating PO. Afebrile today. Ambulating independently. Review of Systems Review of Systems: All systems reviewed & are unremarkable except as noted in Subjective Physical Exam Physical Exam: CONSTITUTIONAL: WNWD, vitals as above, generally well- appearing EYES: normal conjunctivae, no scleral icterus ENT: MMM RESPIRATORY: clear to auscultation bilaterally, no crackles, rales or wheezes, normal respiratory effort CARDIOVASCULAR: regular rate and rhythm, S1 and 2 heard without murmurs, gallops or rubs, no JVD, no peripheral edema GASTROINTESTINAL: normal bowel sounds, soft, nontender, nondistended MUSCULOSKELETAL: strength 5/5 throughout, head is normocephalic and atraumatic SKIN: warm and dry NEUROLOGIC: CN 2-12 grossly intact, normal cognition, no gross focal deficits. PSYCHIATRIC: alert cooperative and oriented to person, place and time. Results & Data ([facility]) Vital Signs (Past 12 Hours) Vital Signs Temp Pulse Pulse Resp BP Pulse Ox Pulse Ox 09/16/19 13:53 98 09/16/19 12:40 76 19 91 09/16/19 11:25 36.4 C L 68 20 126/84 100 09/16/19 08:00 36.4 C L 62 20 127/80 98 09/16/19 07:00 60 09/16/19 02:39 78 09/16/19 02:38 36.0 C L 78 18 151/83 H 100 Laboratory Results Short CBC 09/15/19 09/16/19 Range/Units 17:40 03:59 WBC 4.22 L 2.74 L (4.8-10.8) K/uL Hgb 12.2 11.2 L (12.0-16.0) g/dL Hct 37.1 34.1 L (37-47) % Plt Count 174 151 (130-400) K/uL BMP 09/15/19 09/16/19 17:40 03:59 Sodium 137 139 Potassium 3.4 L 3.8 Chloride 103 107 Carbon Dioxide 28 29 BUN 25 H 22 H Creatinine 1.13 0.89 Glucose 97 122 H Calcium 8.2 L 7.7 L Cardiac Enzymes 09/15/19 Range/Units 17:40 Troponin I < 0.015 (0-0.045) ng/ml Liver Function 09/15/19 09/16/19 Range/Units 17:40 03:59 Total Bilirubin 0.3 (0.2-1) mg/dl AST 35 (15-37) U/L ALT 26 (12-78) U/L Alkaline Phosphatase 136 H (45-117) U/L Albumin 3.2 L 2.8 L (3.4-5.0) gm/dl Medications Administered Current Inpatient Medications Acetaminophen (Tylenol) 650 mg PO Q4H PRN PRN Reason: Pain or Fever Stop: 10/16/19 02:34 Aspirin (Ecotrin Ectab) 81 mg PO DAILY [facility] Stop: 10/16/19 08:59 Last Admin: 09/16/19 08:51 Dose: 81 mg Documented by: Azithromycin (Zithromax) 250 mg PO QAM [facility] Stop: 09/20/19 08:59 Last Admin: 09/16/19 08:52 Dose: 250 mg Documented by: Carvedilol (Coreg) 6.25 mg PO BID [facility] Stop: 10/16/19 02:34 Last Admin: 09/16/19 08:50 Dose: 6.25 mg Documented by: Dextrose (Dextrose 50%) 25 - 50 ml IV UD PRN; Protocol PRN Reason: Hypoglycemia Protocol Stop: 10/16/19 02:56 Enoxaparin Sodium (Lovenox) 40 mg SQ QAM [facility] Stop: 10/16/19 08:59 Last Admin: 09/16/19 08:53 Dose: 40 mg Documented by: Famotidine (Pepcid) 10 mg PO BID PRN PRN Reason: Acid Reflux Stop: 10/16/19 02:34 Glucagon (Glucagen) 1 mg SQ UD PRN; Protocol PRN Reason: Hypoglycemia Protocol Stop: 10/16/19 02:56 Glucose (Dex4 Glucose) 4 - 8 tabs PO UD PRN; Protocol PRN Reason: Hypoglycemia Protocol Stop: 10/16/19 02:56 Glucose (Glucose 40%) 15 - 30 gm PO UD PRN; Protocol PRN Reason: Hypoglycemia Protocol Stop: 10/16/19 02:56 Guaifenesin (Mucinex) 600 mg PO Q12 [facility] Stop: 10/16/19 08:59 Last Admin: 09/16/19 08:57 Dose: 600 mg Documented by: Potassium Chloride 40 meq/ (Sodium Chloride) 1,020 mls @ 50 mls/hr IV .[id number] ONE Stop: 09/16/19 23:23 Last Admin: 09/16/19 04:08 Dose: 50 mls/hr Documented by: Insulin Aspart (Novolog Flexpen) 0 units SC ACHS [facility] Stop: 10/16/19 02:59 Last Admin: 09/16/19 12:34 Dose: Not Given Documented by: Ipratropium [place] (Atrovent 0.02% 0.5mg/2.5ml) 0.5 mg INH Q6R [facility] Stop: 10/16/19 06:59 Last Admin: 09/16/19 12:37 Dose: 0.5 mg Documented by: Levalbuterol HCl (Xopenex 1.25mg/0.5ml Neb) 1.25 mg INH Q6R [facility] Stop: 10/16/19 06:59 Last Admin: 09/16/19 12:36 Dose: 1.25 mg Documented by: Lisinopril (Zestril) 5 mg PO DAILY [facility] Stop: 10/16/19 08:59 Last Admin: 09/16/19 08:53 Dose: 5 mg Documented by: Miscellaneous (Carbohydrates For Hypoglycemia) 15 - 30 gm PO UD PRN PRN Reason: Hypoglycemia Protocol Stop: 10/16/19 02:56 Multivitamins (Multivitamin Tab) 1 tab PO DAILY [facility] Stop: 10/16/19 08:59 Last Admin: 09/16/19 08:51 Dose: 1 tab Documented by: Oseltamivir Phosphate (Tamiflu) 30 mg PO BID [facility]; Protocol Stop: 09/21/19 08:59 Last Admin: 09/16/19 09:19 Dose: 30 mg Documented by: Oxycodone HCl (Roxicodone Immediate Rel) 5 mg PO Q4H PRN PRN Reason: Pain Stop: 09/30/19 02:34 Pantoprazole Sodium (Protonix) 40 mg PO QAM [facility] Stop: 10/16/19 08:59 Last Admin: 09/16/19 08:52 Dose: 40 mg Documented by: Phenytoin Sodium (Dilantin Er) 100 mg PO BID@0900,1400 [facility] Stop: 10/16/19 08:59 Last Admin: 09/16/19 08:52 Dose: 100 mg Documented by: Phenytoin Sodium (Dilantin Er) 200 mg PO HS [facility] Stop: 10/15/19 22:44 Last Admin: 09/16/19 00:05 Dose: 200 mg Documented by: Phenytoin Sodium (Dilantin Er) 30 mg PO DAILY [facility] Stop: 10/16/19 08:59 Last Admin: 09/16/19 08:52 Dose: 30 mg Documented by: Pravastatin Sodium (Pravachol) 10 mg PO DAILY [facility] Stop: 10/16/19 08:59 Last Admin: 09/16/19 08:51 Dose: 10 mg Documented by: Prednisone (Prednisone) 40 mg PO DAILY [facility] Stop: 09/20/19 08:59 Last Admin: 09/16/19 08:51 Dose: 40 mg Documented by:
[2019-09-17] MEDS: LEVALBUTEROL 1.25MG/0.5ML NEB INH SCH ×4 (01:06→19:33)
[2019-09-17] MEDS: IPRATROPIUM BROMIDE NEB SOLN 0.02% 2.5 ML VIAL INH SCH ×4 (01:06→19:32)
[2019-09-17] MEDS: ACETAMINOPHEN 325 MG TAB PO PRN ×2 (03:52→09:51)
[2019-09-17 06:31] LABS: Hematocrit (blood only) 34.4 % (37-47); Hemoglobin 11.2 g/dL (12.0-16.0); Mean Corpuscular Hemoglobin 32.3 pg (25-34); Mean Corpuscular Hgb Conc 32.6 g/dL (32-36); Mean Corpuscular Volume 99.1 fL (80-100); Mean Platelet Volume 9.7 fL (7.4-10.4); Platelet Count 153 K/uL (130-400); RDW Coefficient of Variation 13.8 % (11.5-14.5); RDW Standard Deviation 50.2 fL (36.4-46.3); Red Blood Count 3.47 M/uL (4.2-5.4); White Blood Count 3.75 K/uL (4.8-10.8)
[2019-09-17 07:06] LABS: Calcium 8.2 mg/dl (8.5-10.1); Creatinine Clr Calc Pharmacy 81.5 ml/min; Est GFR (African American) 98.1; Est GFR (Non-African American) 84.6; Potassium 4.3 mmol/L (3.5-5.1)
[2019-09-17] MEDS: PHENYTOIN SODIUM ER 30 MG CAP PO SCH (09:29)
[2019-09-17] MEDS: lisinopriL 5 MG TAB PO SCH (09:29)
[2019-09-17] MEDS: AZITHROMYCIN 250 MG TAB PO SCH (09:29)
[2019-09-17] MEDS: PHENYTOIN SODIUM ER 100 MG CAP PO SCH ×3 (09:30→21:19)
[2019-09-17] MEDS: PRAVASTATIN SOD 10 MG TAB PO SCH (09:30)
[2019-09-17] MEDS: MULTIVITAMIN TAB PO SCH (09:30)
[2019-09-17] MEDS: guaiFENesin 600 MG TABCR PO SCH ×2 (09:30→21:20)
[2019-09-17] MEDS: ENOXAPARIN INJ 40 MG/0.4 ML SYR SQ SCH (09:30)
[2019-09-17] MEDS: carvediloL 6.25 MG TAB PO SCH ×2 (09:31→21:18)
[2019-09-17] MEDS: predniSONE 20 MG TAB PO SCH (09:31)
[2019-09-17] MEDS: PANTOprazole 40 MG TAB PO SCH (09:31)
[2019-09-17] MEDS: ASPIRIN 81 MG ECTAB PO SCH (09:31)
[2019-09-17] MEDS: OSELTAMIVIR PHOSPHATE SUSP 30 MG/5 ML UDP PO SCH ×2 (09:52→21:17)
[2019-09-17] MEDS: INSULIN ASPART 100 UNITS/ML 3 ML PEN SC SCH ×4 (10:04→21:31)
--- NOTE | 2019-09-17 17:47 | Hospitalist Progress Note ---
Date of Service September 17, 2019 Assessment & Plan (1) Influenza A: Tamiflu, improved overall. (2) COPD exacerbation: Possible exacerbation so steroids were started as well as nebulized bronchodilators and quaifensin. cont 5 day course of therapy. (3) Hypoxia: No evidence of pneumonia, but does have flu A. Recent known sick contact was her mother. Hypoxia resolved. (4) Hypertension: controlled, cont lisinopril and coreg per home regimen. (5) Sarcoidosis: known history, workup/treatment per outpatient physician team. (6) Epilepsy: no seizures this admission, cont Dilantin ER per home regimen. (7) DMII (diabetes mellitus, type 2): At goal, cont Novolog with CF and carb coverage while hospitalized. (8) DVT prophylaxis: Lovenox Full Code Dispo-to home when medically stable. Droplet precautions. Sandra Lomas DO [facility] Hospitalist Admission and Anticipated Discharge Date Admission Date: September 15, 2019 Anticipated date of discharge: 09/19/19 Subjective doing well today off supplemental oxygen reports feeling winded with ambulation still denies chest pain or SOB at rest respiratory symptoms improved overall afebrile tolerating PO Review of Systems Review of Systems: All systems reviewed & are unremarkable except as noted in Subjective Physical Exam Physical Exam: CONSTITUTIONAL: WNWD, vitals as above, generally well- appearing EYES: normal conjunctivae, no scleral icterus ENT: MMM RESPIRATORY: clear to auscultation bilaterally, no crackles, rales or wheezes, normal respiratory effort CARDIOVASCULAR: regular rate and rhythm, S1 and 2 heard without murmurs, gallops or rubs, no JVD, no peripheral edema GASTROINTESTINAL: normal bowel sounds, soft, nontender, nondistended MUSCULOSKELETAL: strength 5/5 throughout, head is normocephalic and atraumatic SKIN: warm and dry NEUROLOGIC: CN 2-12 grossly intact, normal cognition, no gross focal deficits. PSYCHIATRIC: alert cooperative and oriented to person, place and time. Results & Data ([facility]) Vital Signs (Past 12 Hours) Vital Signs Temp Pulse Resp BP BP Pulse Ox 09/17/19 15:22 36.9 C 64 18 113/64 94 09/17/19 14:51 91 09/17/19 13:18 82 20 94 09/17/19 07:47 36.3 C L 60 18 109/71 92 09/17/19 07:25 76 19 91 Laboratory Results Short CBC 09/17/19 Range/Units 05:46 WBC 3.75 L (4.8-10.8) K/uL Hgb 11.2 L (12.0-16.0) g/dL Hct 34.4 L (37-47) % Plt Count 153 (130-400) K/uL BMP 09/17/19 05:46 Sodium 138 Potassium 4.3 Chloride 108 H Carbon Dioxide 26 BUN 25 H Creatinine 0.73 Glucose 86 Calcium 8.2 L Medications Administered Current Inpatient Medications Acetaminophen (Tylenol) 650 mg PO Q4H PRN PRN Reason: Pain or Fever Stop: 10/16/19 02:34 Last Admin: 09/17/19 09:51 Dose: 650 mg Documented by: Aspirin (Ecotrin Ectab) 81 mg PO DAILY [facility] Stop: 10/16/19 08:59 Last Admin: 09/17/19 09:31 Dose: 81 mg Documented by: Azithromycin (Zithromax) 250 mg PO QAM [facility] Stop: 09/20/19 08:59 Last Admin: 09/17/19 09:29 Dose: 250 mg Documented by: Carvedilol (Coreg) 6.25 mg PO BID [facility] Stop: 10/16/19 02:34 Last Admin: 09/17/19 09:31 Dose: 6.25 mg Documented by: Dextrose (Dextrose 50%) 25 - 50 ml IV UD PRN; Protocol PRN Reason: Hypoglycemia Protocol Stop: 10/16/19 02:56 Enoxaparin Sodium (Lovenox) 40 mg SQ QAM [facility] Stop: 10/16/19 08:59 Last Admin: 09/17/19 09:30 Dose: 40 mg Documented by: Famotidine (Pepcid) 10 mg PO BID PRN PRN Reason: Acid Reflux Stop: 10/16/19 02:34 Glucagon (Glucagen) 1 mg SQ UD PRN; Protocol PRN Reason: Hypoglycemia Protocol Stop: 10/16/19 02:56 Glucose (Dex4 Glucose) 4 - 8 tabs PO UD PRN; Protocol PRN Reason: Hypoglycemia Protocol Stop: 10/16/19 02:56 Glucose (Glucose 40%) 15 - 30 gm PO UD PRN; Protocol PRN Reason: Hypoglycemia Protocol Stop: 10/16/19 02:56 Guaifenesin (Mucinex) 600 mg PO Q12 [facility] Stop: 10/16/19 08:59 Last Admin: 09/17/19 09:30 Dose: 600 mg Documented by: Insulin Aspart (Novolog Flexpen) 0 units SC ACHS [facility] Stop: 10/16/19 02:59 Last Admin: 09/17/19 17:29 Dose: 3 units Documented by: Ipratropium [place] (Atrovent 0.02% 0.5mg/2.5ml) 0.5 mg INH Q6R [facility] Stop: 10/16/19 06:59 Last Admin: 09/17/19 13:17 Dose: 0.5 mg Documented by: Levalbuterol HCl (Xopenex 1.25mg/0.5ml Neb) 1.25 mg INH Q6R [facility] Stop: 10/16/19 06:59 Last Admin: 09/17/19 13:17 Dose: 1.25 mg Documented by: Lisinopril (Zestril) 5 mg PO DAILY [facility] Stop: 10/16/19 08:59 Last Admin: 09/17/19 09:29 Dose: 5 mg Documented by: Miscellaneous (Carbohydrates For Hypoglycemia) 15 - 30 gm PO UD PRN PRN Reason: Hypoglycemia Protocol Stop: 10/16/19 02:56 Multivitamins (Multivitamin Tab) 1 tab PO DAILY [facility] Stop: 10/16/19 08:59 Last Admin: 09/17/19 09:30 Dose: 1 tab Documented by: Oseltamivir Phosphate (Tamiflu) 30 mg PO BID [facility]; Protocol Stop: 09/21/19 08:59 Last Admin: 09/17/19 09:52 Dose: 30 mg Documented by: Oxycodone HCl (Roxicodone Immediate Rel) 5 mg PO Q4H PRN PRN Reason: Pain Stop: 09/30/19 02:34 Pantoprazole Sodium (Protonix) 40 mg PO QAM [facility] Stop: 10/16/19 08:59 Last Admin: 09/17/19 09:31 Dose: 40 mg Documented by: Phenytoin Sodium (Dilantin Er) 100 mg PO BID@0900,1400 [facility] Stop: 10/16/19 08:59 Last Admin: 09/17/19 14:30 Dose: 100 mg Documented by: Phenytoin Sodium (Dilantin Er) 200 mg PO HS [facility] Stop: 10/15/19 22:44 Last Admin: 09/16/19 20:49 Dose: 200 mg Documented by: Phenytoin Sodium (Dilantin Er) 30 mg PO DAILY [facility] Stop: 10/16/19 08:59 Last Admin: 09/17/19 09:29 Dose: 30 mg Documented by: Pravastatin Sodium (Pravachol) 10 mg PO DAILY [facility] Stop: 10/16/19 08:59 Last Admin: 09/17/19 09:30 Dose: 10 mg Documented by: Prednisone (Prednisone) 40 mg PO DAILY [facility] Stop: 09/20/19 08:59 Last Admin: 09/17/19 09:31 Dose: 40 mg Documented by:
[2019-09-18] MEDS: IPRATROPIUM BROMIDE NEB SOLN 0.02% 2.5 ML VIAL INH SCH ×3 (00:58→13:24)
[2019-09-18] MEDS: LEVALBUTEROL 1.25MG/0.5ML NEB INH SCH ×3 (00:59→13:24)
[2019-09-18] MEDS: predniSONE 20 MG TAB PO SCH (08:48)
[2019-09-18] MEDS: OSELTAMIVIR PHOSPHATE SUSP 30 MG/5 ML UDP PO SCH (08:50)
[2019-09-18] MEDS: ENOXAPARIN INJ 40 MG/0.4 ML SYR SQ SCH (08:50)
[2019-09-18] MEDS: PHENYTOIN SODIUM ER 100 MG CAP PO SCH ×2 (08:51→13:23)
[2019-09-18] MEDS: AZITHROMYCIN 250 MG TAB PO SCH (08:51)
[2019-09-18] MEDS: lisinopriL 5 MG TAB PO SCH (08:51)
[2019-09-18] MEDS: PANTOprazole 40 MG TAB PO SCH (08:51)
[2019-09-18] MEDS: PRAVASTATIN SOD 10 MG TAB PO SCH (08:51)
[2019-09-18] MEDS: MULTIVITAMIN TAB PO SCH (08:51)
[2019-09-18] MEDS: guaiFENesin 600 MG TABCR PO SCH (08:52)
[2019-09-18] MEDS: PHENYTOIN SODIUM ER 30 MG CAP PO SCH (08:52)
[2019-09-18] MEDS: carvediloL 6.25 MG TAB PO SCH (08:52)
[2019-09-18] MEDS: ASPIRIN 81 MG ECTAB PO SCH (08:52)
[2019-09-18] MEDS: INSULIN ASPART 100 UNITS/ML 3 ML PEN SC SCH ×2 (09:23→12:44)
--- NOTE | 2019-09-18 13:18 | Hospitalist Progress Note ---
Date of Service September 18, 2019 Assessment & Plan (1) Influenza A: Admitted with acute hypoxic respiratory failure secondary to influenza and is complicated by COPD She has been on Tamiflu Her condition has improved a lot Likely will discharge this afternoon (2) COPD exacerbation: Possible exacerbation so steroids were started as well as nebulized bronchodilators and quaifensin. We will cont 5 day course of therapy with steroid. And azathioprine for 5 days in total (3) Hypoxia: No evidence of pneumonia, but does have flu A. Recent known sick contact was her mother. Hypoxia resolved. (4) Hypertension: Controlled, cont lisinopril and coreg per home regimen. (5) Sarcoidosis: known history, workup/treatment per outpatient physician team. (6) Epilepsy: No seizures this admission, cont Dilantin ER per home regimen. (7) DMII (diabetes mellitus, type 2): At goal, cont Novolog with CF and carb coverage while hospitalized. Patient denies to have any diabetes (8) DVT prophylaxis: Lovenox Full Code Dispo-to home when medically stable. Droplet precautions. Likely discharge this afternoon Admission and Anticipated Discharge Date Admission Date: September 15, 2019 Anticipated date of discharge: 09/19/19 Subjective The patient is seen and examined in medical floor She was admitted with the acute hypoxic respiratory failure likely secondary to influenza with history of COPD Clinically a lot better today She has been ambulating well without any shortness of breath Denies any cough and/or chest pain Review of Systems Review of Systems: All systems reviewed and are unremarkable except as noted below Respiratory: no cough, no chest congestion and no dyspnea Physical Exam Physical Exam: Sitting at the edge of the bed without any acute symptoms Constitutional: well developed, well nourished and + obese; no acute distress and not ill appearing Eyes: PERRL, conjunctivae normal, anicteric sclerae ENMT: external ear and nose normal, oropharynx normal Neck: trachea midline, no thyromegaly Respiratory: normal respiratory effort; no respiratory distress Auscultation: lungs clear to auscultation bilaterally Cardiovascular: Rate/Rhythm: regular rate and regular rhythm Heart Sounds: no murmur Gastrointestinal (Abdomen): Inspection/Auscultation: abdomen normal to inspection and normal bowel sounds Percussion/Palpation: abdomen soft; abdomen nontender Musculoskeletal: No acute arthritis in any joints Neurologic: moves all extremities; no focal motor deficits Lymphatic: no cervical or axillary lymphadenopathy Results & Data ([facility]) Vital Signs (Past 12 Hours) Vital Signs Temp Pulse Resp BP Pulse Ox 09/18/19 07:47 71 18 94 09/18/19 06:48 36.7 C 66 18 153/80 H 94
--- NOTE | 2019-09-19 07:31 | Discharge Summary ---
Date of Service September 19, 2019 Admission HPI Per Admitting Provider History obtained from patient and records. Medical history significant for COPD/restrictive lung disease as per records, sarcoidosis, hypertension, hyperlipidemia, hyperparathyroidism as per records, history of seizure disorder. 2 days history of poor appetite, malaise, low-grade fever at home along with cough clear to junky with some shortness of breath. No chest pain. Patient's mother had flu last week. Patient seen at PCP's office this afternoon. Noted to be hypoxemic, O2 sats 80s on room air. Patient brought to the ER. Received Decadron, neb treatment, Tamiflu for possible COPD exacerbation secondary to flu. 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 Admission Exam Per Admitting Provider Physical Exam: GENERAL: Comfortable, pleasant, wane, obese, no respiratory distress SKIN: Normal color, warm HEENT: [place] palpebral conjunctivae, no ptosis, dry buccal mucosa, nasal cannula in place NECK : Supple, short neck, no tenderness CHEST : Decreased breath sounds , no tenderness HEART : RRR, no obvious murmurs ABDOMEN: Some distention, nontender EXTREMITIES : Minimal LE swelling, no LE tenderness, no other conspicuous deformities noted NEUROLOGIC : Coherent, no facial asymmetry, no other gross focality Principal Diagnosis Acute hypoxic respiratory failure secondary to influenza A and complicated by COPD, hypertension, sarcoidosis Discharge Exam Constitutional well developed, well nourished and + obese; no acute distress and not ill appearing Eyes PERRL, conjunctivae normal, anicteric sclerae ENMT external ear and nose normal, oropharynx normal Neck trachea midline, no thyromegaly Respiratory normal respiratory effort; no respiratory distress Auscultation: lungs clear to auscultation bilaterally Cardiovascular Rate/Rhythm: regular rate and regular rhythm Heart Sounds: no murmur Gastrointestinal (Abdomen) Inspection/Auscultation: abdomen normal to inspection and normal bowel sounds Percussion/Palpation: abdomen soft; abdomen nontender Neurologic moves all extremities; no focal motor deficits Lymphatic no cervical or axillary lymphadenopathy Discharge Data Allergies Allergy/AdvReac Type Severity Reaction Status Date / Time carbamazepine Allergy Unknown Unknown Verified 09/15/19 19:17 cephalexin Allergy Unknown unk Verified 09/15/19 19:17 pseudoephedrine Allergy Unknown Unknown Verified 09/15/19 19:17 simvastatin Allergy Unknown Unknown Verified 09/15/19 19:17 Consultations 09/15/19 21:05 ED Decision to Admit Stat Hospital Course (1) Influenza A: Admitted with acute hypoxic respiratory failure secondary to influenza and is complicated by COPD She has been on Tamiflu Her condition has improved a lot Likely will discharge this afternoon (2) COPD exacerbation: Possible exacerbation so steroids were started as well as nebulized bronchodilators and quaifensin. We will cont 5 day course of therapy with steroid. And azathioprine for 5 days in total (3) Hypoxia: No evidence of pneumonia, but does have flu A. Recent known sick contact was her mother. Hypoxia resolved. (4) Hypertension: Controlled, cont lisinopril and coreg per home regimen. (5) Sarcoidosis: known history, workup/treatment per outpatient physician team. (6) Epilepsy: No seizures this admission, cont Dilantin ER per home regimen. (7) DMII (diabetes mellitus, type 2): At goal, cont Novolog with CF and carb coverage while hospitalized. Patient denies to have any diabetes (8) DVT prophylaxis: Lovenox Full Code Dispo-to home when medically stable. Droplet precautions. Likely discharge this afternoon Total Time Total Time Spent Total Time Spent (In Minutes): 35 minutes Total Time Includes: Examination of the Patient, Discharge Planning, Medication Reconciliation and Communication With Other Providers Discharge Plan Discharge Items Patient Disposition: Home - Self-Care Reason For Visit: RESP FAILURE Discharge Diagnosis: Acute hypoxic respiratory failure secondary to influenza A and complicated by COPD, hypertension, sarcoidosis Condition on Discharge: Good Activity: Resume your previous activity Non-emergency contact: Primary Care Provider Call non-emergency contact if: you have any medication questions Follow-up/Referrals: Tay Rey MD [Primary Care Provider] - 09/22/19 1:00 pm (Your appointment is with Dr. Nugent) Diet: Heart Healthy Addtl Attending Provider Instructions: Please take precaution to avoid respiratory illness Maintain highest level of hygiene and wash hands frequently Pending Studies at Discharge: No Stand-Alone Forms: [employer], Smoking Cessation Medications and DC Order Prescriptions: New azithromycin [Zithromax] 250 mg Tablet 250 mg PO QAM 2 Days Qty: 2 RF: 0 prednisone 20 mg Tablet 40 mg PO DAILY 2 Days Qty: 4 RF: 0 oseltamivir [Tamiflu] 30 mg capsule 30 mg PO BID 2 Days Qty: 4 RF: 0 Continued chlorthalidone 25 mg tablet 25 mg PO DAILY Qty: 30 RF: 0 phenytoin sodium extended 100 mg capsule 100 mg PO BID RF: 0 phenytoin sodium extended 30 mg capsule 30 mg PO DAILY RF: 0 lisinopril 5 mg tablet 5 mg PO DAILY RF: 0 multivitamin [Multiple Vitamins] tablet 1 tab PO DAILY RF: 0 ergocalciferol (vitamin D2) 50,000 unit capsule 50,000 units PO MONTHLY Qty: 12 RF: 0 carvedilol [Coreg] 6.25 mg tablet 6.25 mg PO BID RF: 0 famotidine [Pepcid AC] 10 mg Tablet 10 mg PO BID PRN (Reason: Acid Reflux) RF: 0 albuterol sulfate 1.25 mg/3 mL solution for nebulization 1.25 mg continuous nebulization QID PRN (Reason: Shortness Of Breath Or Wheezing) RF: 0 phenytoin sodium extended 100 mg capsule 200 mg PO HS RF: 0 aspirin [Aspir-Low] 81 mg Tablet,Delayed Release (Dr/Ec) 81 mg PO DAILY RF: 0 pravastatin 10 mg tablet 10 mg PO DAILY RF: 0 omeprazole 20 mg capsule,delayed release(DR/EC) 20 mg PO QAM RF: 0 albuterol sulfate 90 mcg/actuation HFA aerosol inhaler 2 puff INHALATION QID PRN (Reason: Shortness Of Breath Or Wheezing) RF: 0 Anoro Ellipta 62.5-25 mcg/actuation blister with device 1 ea INHALATION DAILY PRN (Reason: Shortness Of Breath) RF: 0 Discharge Orders: Discharge Order (Routine); Ordered 09/18/19 Ordered By: Sergey Maier Admission Data Admit Date/Time: 09/15/19 22:43 Attending Provider: Sergey Maier Admit Provider: Earl Preston Primary Care Provider: Tay Rey Other Providers: Earl Preston ; Sandra Lomas Other Interventions: Discharge Summary Assessment (RN) Last Done: 09/18/19 14:58 DC Date/Time DO NOT enter until pt leaves facility: 09/18/19 15:50
== END 2019-09-18 15:50 | disposition home or self-care (01) | DRG 193 ==
LOC: ED 17:03 → 2N 22:43 → SUATTDRO 22:43 → 2N 09-16 01:35 → 3W 09-17 22:59